=== PATIENT | male | born 1995 | race African-American/Black ===

== ENCOUNTER 2017-10-05 21:38 | Emergency (ER) | payer OTHER ==
[2017-10-05] MEDS ORDERED: FAMOTIDINE 20 MG TAB PO STA (22:09)
[2017-10-05] MEDS ORDERED: methylPREDNISolone SOD SUCCI 125 MG/2 ML VIAL IM ONE (22:09)
--- NOTE | 2017-10-05 22:56 | ED ---
Allergic Reaction HPI - General Chief complaint: Allergic Reaction Stated complaint: allergic reaction (food) Time Seen by Provider: 10/05/17 22:02 Source: patient Mode of arrival: ambulatory Limitations: no limitations - History of Present Illness Initial Comments: 22-year-old male patient presents to the emergency department today for evaluation of rash to his trunk and upper legs. Patient states this started approximately 45 minutes ago. States that he ate at a new restaurant this evening and it started shortly after finishing his meal. Patient denies any exposure to other new substances including medications, lotions, soaps, creams, or clothing. Patient states that his throat feels scratchy however denies any throat, tongue, or lip swelling. Denies any difficulty breathing. Denies any abdominal pain, nausea, or vomiting with this. History of ALLERGIC reactions similar to this. Did take 75 mg of Benadryl prior to arrival. States that the rash is very itchy. Patient denies any recent fever, chills, chest pain, abdominal pain, nausea, vomiting, diarrhea, constipation, back pain, numbness, tingling, dizziness, weakness, hematuria, dysuria, urinary urgency, urinary frequency, headache, visual changes, or any other complaints. - Related Data Home Medications Medication Instructions Recorded Confirmed Calamine/Zinc Oxide Lotion 1 applic TOPICAL DAILY PRN 10/05/17 10/05/17 [Calamine Lotion] diphenhydrAMINE [Benadryl] 50 mg PO DAILY PRN 10/05/17 10/05/17 Previous Rx's Medication Instructions Recorded Famotidine [Pepcid] 20 mg PO DAILY #3 tablet 10/05/17 predniSONE 50 mg PO DAILY #3 tablet 10/05/17 Allergies Allergy/AdvReac Type Severity Reaction Status Date / Time No Known Allergies Allergy Verified 10/05/17 21:56 Review of Systems ROS Statement: Those systems with pertinent positive or pertinent negative responses have been documented in the HPI. ROS Other: All systems not noted in ROS Statement are negative. Past Medical History Past Medical History: No Reported History History of Any Multi-Drug Resistant Organisms: None Reported Past Surgical History: Tonsillectomy Past Psychological History: No Psychological Hx Reported Smoking Status: Never smoker Past Alcohol Use History: Occasional Past Drug Use History: None Reported General Exam Limitations: no limitations General appearance: alert, in no apparent distress, other (This is a well- developed, well-nourished adult male patient in no acute distress. Vital signs upon presentation are temperature 97.8F, pulse 83, respirations 18, blood pressure 151/88, pulse ox 99% on room air.) Eye exam: Present: normal appearance, PERRL, EOMI. Absent: scleral icterus, conjunctival injection, periorbital swelling ENT exam: Present: normal exam, normal oropharynx, mucous membranes moist Respiratory exam: Present: normal lung sounds bilaterally, other (Speaking full sentences without difficulty). Absent: respiratory distress, wheezes, rales, rhonchi, stridor Cardiovascular Exam: Present: regular rate, normal rhythm, normal heart sounds. Absent: systolic murmur, diastolic murmur, rubs, gallop, clicks GI/Abdominal exam: Present: soft, normal bowel sounds. Absent: distended, tenderness, guarding, rebound, rigid Neurological exam: Present: alert, oriented X3, CN II-XII intact Psychiatric exam: Present: normal affect, normal mood Skin exam: Present: warm, dry, intact, normal color, rash (There is an urticarial rash noted to the chest, abdomen, back, and thighs. Lesions are erythematous and swollen consistent with hives. Lesions are non-petechial, nonvesicular, nonmucosal.) Course Vital Signs 10/05/17 21:42 Temperature 97.8 F Pulse Rate 83 Respiratory 18 Rate Blood Pressure 151/88 O2 Sat by Pulse 99 Oximetry Medical Decision Making - Medical Decision Making 22-year-old male patient presented to the emergency department today for evaluation of rash over his trunk and thighs. Physical examination did reveal urticaria. Rash is itchy. Patient was complaining of scratchy throat but had no difficulty breathing. No lip or tongue swelling or noted. Patient is speaking full sentences without difficulty. Lungs are clear to auscultation with good air movement. Patient did take 75 mg of Benadryl prior to arrival. He did receive 125 Solu-Medrol IM and Pepcid by mouth. Upon reevaluation patient continues to do well. States his itching has improved. He is feeling better and wanted to be discharged. He is instructed to continue taking Benadryl every 6 hours as needed. He'll be given a prescription for Pepcid and prednisone for the next 3 days. Return parameters were discussed in detail. He is instructed follow up with his primary care physician for recheck in 1-2 days. He verbalizes understanding and agrees with this plan. Disposition Clinical Impression: Allergic reaction Disposition: HOME SELF-CARE Condition: Good Instructions: Urticaria (ED), General Allergic Reaction (ED) Additional Instructions: Continue taking Benadryl every 6 hours as needed. Take other medications as directed. Follow-up with your primary care physician for recheck in 1-2 days. Return here immediately for any new, worsening, or concerning symptoms. Prescriptions: Famotidine [Pepcid] 20 mg PO DAILY #3 tablet predniSONE 50 mg PO DAILY #3 tablet Is patient prescribed a controlled substance at d/c from ED?: No Referrals: Oskar Garcia DO [Primary Care Provider] - 1-2 days Time of Disposition: 23:12
[2017-10-05 23:43] VITALS: BP 130/77; PULSE 71; RESP 16; TEMP 97.9
== END 2017-10-05 23:43 | disposition home or self-care (01) ==
LOC: EC 21:38
DX: L50.0 Allergic urticaria (principal)
CPT/HCPCS: 99283; 96372; J2930